=== PATIENT | female | born 1945 | race Caucasian/White ===

== ENCOUNTER 2021-05-02 07:15 | Outpatient (CLI) | payer OTHER | END 2021-05-02 07:18 | disposition home or self-care (01) | LOC: NUCLEAR 07:15 | PROVIDERS: ATTEND Physical Medicine & Rehabilitation | DX: M06.4 Inflammatory polyarthropathy (principal); C79.9 Secondary malignant neoplasm of unspecified site | CPT/HCPCS: 78315; A9503 ==